=== PATIENT | female | born 1995 | race Caucasian/White ===

== ENCOUNTER → 2019-05-27 16:42 | Outpatient (CLI) | payer BC, SELFPAY ==
[2019-05-27 18:00] LABS: Thyroid Stim Hormone (TSH) 1.57 uIU/mL (0.358-3.74)
== END ==
PROVIDERS: Referring Provider Otolaryngology; Visit Provider Otolaryngology
DX: R53.83 Other fatigue (principal)
CPT/HCPCS: 36415; 84443

== ENCOUNTER 2019-08-06 11:14 | Day surgery (SDC) | payer BC, SELFPAY ==
[2019-08-06 11:38] VITALS: BP 141/69; PULSE 93; RESP 16; TEMP 36.4; O2SAT 99; BMI 24.5
[2019-08-06] MEDS: Lactated Ringers 1,000 ML 100 ML IV ×2 (11:46→13:15)
[2019-08-06 12:00] LABS: Internal QC Validated? YES +Cl - CLEAR BKGD; Pregnancy, Urine Negative Negative
--- NOTE | 2019-08-06 12:55 | TONS_PTH ---
PATIENT: ALEX MONTEJO LOC: [facility] [place]#:[id number] AGE/SX: 23/F ROOM: RE08/06/[address]: Dr. Howard Gambino MD : 1995 BED: DIS: 08/06/2019 SPEC #: [id number] RECD: 08/06/19 15:03 STATUS: JIGNA FARRAH #: [id number] MAGGY: 08/06/19 12:[address]: Howard Gambino DEPT: SURGICAL PATHOLOGY RECD BY: Raymundo Mendiola ENTERED: 08/09/19 11:03 SP TYPE: TONSILS OTHR DR: No Primary Care Phys Tissues: A - Tonsil, NOS B - Tonsil, NOS Procedures: Surgery Specimen Level III HEADER OPERATION: Tonsillectomy PRE-OP DIAGNOSIS: Chronic tonsillitis, sleep apnea TISSUE SUBMITTED: A - Right tonsil, B - Left tonsil MICROSCOPIC DIAGNOSIS A. Right tonsil, tonsillectomy: Benign lymphoid hyperplasia, consistent with chronic tonsillitis. B. Left tonsil, tonsillectomy: Benign lymphoid hyperplasia, consistent with chronic tonsillitis. Organisms consistent with actinomyces. AM:ludy 08/10/19 MICROSCOPIC DESCRIPTION Slides are reviewed. GROSS DESCRIPTION A - Received in formalin labeled with the patient's name and designated right tonsil. The specimen consists of a tonsil that weighs 3.5 gm and measures 2.7 x 1.8 x 1.2 cm. The external surface is pink-schroeder, smooth, glistening and somewhat lobulated. Focally it is hemorrhagic, granular and bears cautery artifact. Serial cross sections through the tonsil reveal normal tonsillar architecture. Fitness Plan Coordinator sections are submitted in one cassette. B - Received in formalin labeled with the patient's name and designated left tonsil. The specimen consists of a tonsil that weighs 3.7 gm and measures 3 x 2 x 1.2 cm. The external surface is pink-schroeder, smooth, glistening and somewhat lobulated. Focally it is hemorrhagic, granular and bears cautery artifact. Serial cross sections through the tonsil reveal normal tonsillar architecture. Fitness Plan Coordinator sections are submitted in one cassette. / AM:ludy 08/09/19 TC:5 CPT: 18555 x2
--- NOTE | 2019-08-06 13:06 | OP.PCM_ITS ---
Problem List (1) Chronic tonsillitis Status: Chronic Report of Operation Date of Procedure: 08/06/19 Pre-Operative Diagnosis: Chronic tonsillitis Post-Operative Diagnosis: Same Surgery/Procedure Performed:: Tonsillectomy Description of Surgical Findings:: Donna is a 23-year-old female presents evaluation of recurrent severe sore throat and exam showing cryptic tonsillar hypertrophy. The above procedures offered hopes alleviation of these complaints and she was eager to proceed. The risks, alternatives, potential complications, and benefits were discussed at length and any questions answered to the patient and/or caregiver's satisfaction. Witnessed informed consent was obtained in the office, and the patient and/or caregiver was agreeable to proceed. Procedure went as follows: The patient was identified in the preoperative holding, brought to the operating room, was placed under general anesthesia and intubated. When appropriate anesthesia was obtained, the head of bed was rotated and the patient prepped and draped in usual sterile fashion. A Jael Aurelio mouthgag was then placed and the patient suspended from the Holden stand. The oral cavity was examined and noted to have 3+ cryptic tonsillar hypertrophy. Beginning on the right side, the right tonsil was then grasped with a curved tenaculum and dissected from the underlying capsule with monopolar cautery. Thi s was then sent as specimen. Similar procedure was then completed on the contralateral side. The oral and nasal cavities were then irrigated with saline solution. An NG tube was then placed to decompress the stomach. The patient was then returned to anesthesia, revived and extubated having tolerated the procedure well. Type of Anesthesia:: General Anesthesiologist: Trip Bass Special Medications: none Specimen's removed: bilateral tonsils Drains: none Estimated Blood Loss (mL): 10 mL Fluids Replaced: 1000 mL Grafts/Implants Used: none - Complications none - Admit VTE Documentation VTE Present on Admission: No VTE Mechan Device Prophylaxis: SCD's VTE Pharm Prophylaxis ordered?: No
--- NOTE | 2019-08-06 13:09 | DCINST_ITS ---
Discharge Diet: No Restrictions Discharge Activity: Return to Normal Activity Call your doctor if your incision/area has: Sudden Increased Bleeding Call your doctor if you observe: Fever of 101 or Higher, Uncontrolled pain Allergies/Adverse Reactions: Allergies No Known Allergies Allergy (Verified 08/06/19 11:35) Medications to take at Discharge NK 08/02/19 Primary Care Physician: Care Physician,No Primary [Primary Care Provider] - Test Results: Test results from this visit will be discussed in further detail at your follow- up appointment, if applicable. Please Follow Up With: Howard Gambino MD When: 2 weeks
[2019-08-06 13:25] VITALS: BP 126/76; BP 131/75; BP 141/69; PULSE 115; PULSE 122; RESP 18; TEMP 36.2; O2SAT 100
[2019-08-06 13:30] VITALS: BP 126/76; BP 141/69; PULSE 124; RESP 18; O2SAT 100
[2019-08-06 13:45] VITALS: BP 109/77; BP 141/69; PULSE 79; RESP 18; O2SAT 100
[2019-08-06 13:52] VITALS: BP 114/69; BP 141/69; PULSE 77; RESP 18; TEMP 36.5; O2SAT 100
[2019-08-06] MEDS: Acetaminophen 160 MG/5 ML UDC 500 MG PO (14:30)
[2019-08-06 17:21] VITALS: BP 126/72; BP 141/69; PULSE 94; RESP 16; TEMP 37.4; O2SAT 96
== END 2019-08-06 17:23 | disposition home or self-care (01) ==
LOC: SDC 11:14 → AC 11:28
PROVIDERS: Referring Provider Otolaryngology; Visit Provider Otolaryngology
PROC: (CPT 42826; principal; 2019-08-06 12:40)
DX: J35.01 Chronic tonsillitis (principal); G47.30 Sleep apnea, unspecified
CPT/HCPCS: 00170; 42826; 81025; 88304; J7120; J2405